=== PATIENT | female | born 2005 | race Caucasian/White ===

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

== ENCOUNTER 2023-02-01 10:36 | Outpatient (CLI) | payer OTHER, SELFPAY ==
[2023-02-01 17:14] LABS: Abs Immature Grans 0.01 10^3/uL (0.0-0.06); Absolute Basophil Count 0.03 10^3/uL (0.0-0.2); Absolute Eosinophil Count 0.12 10^3/uL (0.0-0.7); Absolute Lymphocyte Count 2.48 10^3/uL (1.2-3.4); Absolute Monocyte Count 0.44 10^3/uL (0.1-0.8); Absolute Neutrophil Count 1.95 10^3/uL (1.2-6.7); Basophils % 0.6; Eosinophils % 2.4; HCT 38.3 % (36.0-46.0); HGB 12.4 g/dL (11.2-15.7); Immature Grans % 0.2; Lymphocytes % 49.3; MCHC 32.4 % (32.0-36.0); MCV 83 fL (80-95); MPV 10.4 fL (8.0-11.0); Monocytes % 8.7; Neutrophils % 38.8; Platelet Count 364 10^3/uL (130-400); RBC 4.59 10^6/uL (3.93-5.22); RDW 12.2 % (11.7-14.6); RDW-SD 37.2 fL; WBC 5.03 10^3/uL (4.4-10.8)
[2023-02-01 17:23] LABS: ESR 1 mm/hr (0-20)
[2023-02-01 17:48] LABS: ALT 11 U/L (14-59); AST 13 U/L (15-37); Albumin 4.3 g/dL (3.4-5.0); Alkaline Phosphatase 68 U/L (46-116); Anion Gap 7.6 mmol/L (3-11); BUN 13 mg/dL (7-18); Bilirubin, Total 0.3 mg/dL (0.2-1.0); C-Reactive Protein 0.07 mg/dL (0.0-0.3); CO2 28.4 mmol/L (21.0-32.0); CREATININE 0.7 mg/dL (0.55-1.02); Calcium 9.7 mg/dL (8.5-10.1); Chloride 103 mmol/L (98-107); Estimated GFR 127.69 (mL/min/1.73m2); Glucose 111 mg/dL (74-106); Potassium 3.7 mmol/L (3.5-5.1); Sodium 139 mmol/L (136-145); TSH (W/Ref FT4) 1.95 uIU/mL (0.52-4.13); Total Protein 7.8 g/dL (6.4-8.2)
[2023-02-05 12:21] LABS: IgA 165 mg/dL (85-499); Interpretation (See Note); Tissue Transglutaminase IgA <1.2 U/mL (<4.0)
== END 2023-02-01 10:37 | disposition home or self-care (01) ==
LOC: LBO 02-06 10:37
PROVIDERS: Visit Provider Nurse Practitioner Pediatrics
DX: R63.4 Abnormal weight loss (principal)
CPT/HCPCS: 36415; 80053; 82784; 83516; 85652; 84443; 85025; 86140

== ENCOUNTER 2023-09-13 17:46 | Outpatient (CLI) | payer OTHER, SELFPAY ==
[2023-09-13 16:51] LABS: Abs Immature Grans 0.01 10^3/uL (0.0-0.06); Absolute Basophil Count 0.03 10^3/uL (0.0-0.2); Absolute Eosinophil Count 0.09 10^3/uL (0.0-0.7); Absolute Lymphocyte Count 2.47 10^3/uL (1.2-3.4); Absolute Monocyte Count 0.45 10^3/uL (0.1-0.8); Absolute Neutrophil Count 2.11 10^3/uL (1.2-6.7); Basophils % 0.6 %; Eosinophils % 1.7 %; HCT 36.9 % (36.0-46.0); HGB 11.7 g/dL (11.2-15.7); Immature Grans % 0.2 %; Lymphocytes % 47.9 %; MCH 26.7 pg (27.0-33.0); MCHC 31.7 % (32.0-36.0); MCV 84 fL (80-95); MPV 10.7 fL (8.0-11.0); Monocytes % 8.7 %; Neutrophils % 40.9 %; Platelet Count 249 10^3/uL (130-400); RBC 4.39 10^6/uL (3.93-5.22); RDW 12.7 % (11.7-14.6); RDW-SD 39.4 fL; WBC 5.16 10^3/uL (4.4-10.8)
[2023-09-13 18:41] LABS: ALT 18 U/L (14-59); AST 18 U/L (15-37); Albumin 4.3 g/dL (3.4-5.0); Alkaline Phosphatase 60 U/L (46-116); Anion Gap 12.2 mmol/L (3-11); BUN 11 mg/dL (7-18); Bilirubin, Total 0.4 mg/dL (0.2-1.0); CO2 24.8 mmol/L (21.0-32.0); CREATININE 0.7 mg/dL (0.55-1.02); Calcium 9.2 mg/dL (8.5-10.1); Chloride 104 mmol/L (98-107); Cholesterol 140 mg/dL (<200); Glucose 98 mg/dL (74-106); HDL Cholesterol 66 mg/dL (40-60); Potassium 3.6 mmol/L (3.5-5.1); Sodium 141 mmol/L (136-145); TSH (W/Ref FT4) 1.57 uIU/mL (0.36-3.74); Total Protein 7.3 g/dL (6.4-8.2); Vitamin B12 425 pg/mL (193-986)
[2023-09-13 18:50] LABS: Vitamin D 25 Total 24.1 ng/mL (30-100)
[2023-09-13 19:10] LABS: Triglyceride <25 mg/dL (<150)
[2023-09-13 19:23] LABS: LDL CHOLESTEROL 66 mg/dL (<100)
== END 2023-09-13 17:47 | disposition home or self-care (01) ==
LOC: LBO 17:47
PROVIDERS: Visit Provider Nurse Practitioner Family
DX: E78.5 Hyperlipidemia, unspecified (principal); I10 Essential (primary) hypertension; E55.9 Vitamin D deficiency, unspecified
CPT/HCPCS: 36415; 80053; 80061; 82306; 83721; 82607; 84443; 85025

== ENCOUNTER 2024-04-02 02:34 | Outpatient (CLI) | payer OTHER, SELFPAY ==
[2024-04-02 10:23] LABS: Panorama Kit Sent via Fed Ex
[2024-04-02 10:24] LABS: Abs Immature Grans 0.01 10^3/uL (0.0-0.06); Absolute Basophil Count 0.03 10^3/uL (0.0-0.2); Absolute Eosinophil Count 0.06 10^3/uL (0.0-0.7); Absolute Monocyte Count 0.46 10^3/uL (0.1-0.8); Absolute Neutrophil Count 4.28 10^3/uL (1.2-6.7); Basophils % 0.5 %; HCT 39.9 % (36.0-46.0); HGB 12.9 g/dL (11.2-15.7); Immature Grans % 0.2 %; Lymphocytes % 21.2 %; MCH 27.1 pg (27.0-33.0); MCHC 32.3 % (32.0-36.0); MCV 84 fL (80-95); MPV 10.6 fL (8.0-11.0); Monocytes % 7.5 %; Neutrophils % 69.6 %; Platelet Count 347 10^3/uL (130-400); RBC 4.76 10^6/uL (3.93-5.22); RDW 12.4 % (11.7-14.6); RDW-SD 37.8 fL; WBC 6.14 10^3/uL (4.4-10.8)
[2024-04-02 11:26] LABS: TSH (W/Ref FT4) 1.76 uIU/mL (0.36-3.74); Vitamin D 25 Total 21.9 ng/mL (30-100)
[2024-04-02 18:38] LABS: Hepatitis B Surface Ag Negative (Negative)
[2024-04-02 19:10] LABS: Hepatitis C Ab w Rflx HCV PCR Negative (Negative)
[2024-04-02 19:23] LABS: HIV-1/2 Ag & Ab Screen Negative (Negative)
[2024-04-03 11:11] LABS: Rubella IgG Ab (UVM) Positive (See Note); Varicella IgG Antibody Positive (See Note)
[2024-04-05 13:23] LABS: Syphilis IgG w/Reflex Nonreactive (Nonreactive)
[2024-04-09 11:26] LABS: Specimen WB Whole Blood
[2024-04-25 12:10] LABS: Result Summary NEGATIVE; Specimen WB Whole Blood
== END 2024-04-02 02:35 | disposition home or self-care (01) ==
LOC: LBO 02:34
PROVIDERS: Visit Provider Advanced Practice Midwife
DX: Z34.91 Encounter for supervision of normal pregnancy, unspecified, first trimester (principal)
CPT/HCPCS: 36415; 81220; 81222; 81329; 82306; 86787; 86803; 86850; 86900; 86901; 87340; 87389; 84443; 85025; 86762; 86780

== ENCOUNTER 2024-04-02 09:53 | Outpatient (REF) | payer OTHER, SELFPAY ==
[2024-04-03 10:57] LABS: Chlamydia Result Negative (Negative); GC Result Negative (Negative)
== END 2024-04-02 09:54 | disposition home or self-care (01) ==
LOC: LBN 09:53
PROVIDERS: Visit Provider Advanced Practice Midwife
DX: Z34.91 Encounter for supervision of normal pregnancy, unspecified, first trimester (principal)
CPT/HCPCS: 87491; 87591; 87086

== ENCOUNTER 2024-07-10 17:23 | Outpatient (CLI) | payer OTHER, SELFPAY ==
[2024-07-10 18:52] VITALS: BP 117/65; PULSE 75; TEMP 36.7
--- NOTE | 2024-07-10 19:30 | W.OBNST ---
Date of service: 07/10/24 Time of Service: 19:30 NST Evaluation Reason for NST Reasons for Nonstress Test: OTHER, SEE COMMENT (fall at 1600 today) Reason for NST Other: Pt slipped on ice, landed on left hip and elbow, denies impact to abdomen Gestational Age Gestational Age in Weeks and Days: 25 Weeks and 0Days Test and Monitor Explained Test/Monitor Explained: Test Explained, Monitor Explained and Patient Verbalized Understanding Vital Signs Blood Pressure: 117/65 Pulse: 75 Temperature: 98.1 F Urine Results Urine Protein: Negative Urine Ketones: Negative Urine Glucose: Negative Urine Blood: Negative NST Information Date on Monitor: 07/10/24 Time on Monitor: 17:44 Date off Monitor: 07/10/24 Time off Monitor: 18:50 Total Time on Monitor: 66 NST Interventions: PO Hydration and Notify Provider Contraction Frequency: Irregular NST Evaluation Patient States Movement: Present FHR Baseline: 145 Variability: Moderate 6-25 bpm Accelerations: 10x10 Decelerations: None NST Results: Reactive Note Ultrasound Done: N/A. NST Note Note: Blood type O+ Cvx closed/firm, mid pelvic position, vaginal mucous scant white No bleeding, no labor, pt reports cramps she had earlier have gone away Active fetus, pt tolerating PO fluid intake well, relaxed and conversational No abrasions or bruising visible on left hip or elbow, abd soft and nontender to palpation Discharged at 4 hours post fall in stable and comfortable condition F/up as scheduled and as needed with OB Provider NST Reviewed and Verified by: Angela Nicholson
[2024-07-10 19:31] VITALS: BP 117/65; PULSE 75; TEMP 36.7
== END 2024-07-10 20:24 ==
LOC: BCD 17:25 → OBS 17:54
PROVIDERS: Visit Provider Advanced Practice Midwife
DX: O9A.212 Injury, poisoning and certain other consequences of external causes complicating pregnancy, second trimester (principal); W00.0XXA Fall on same level due to ice and snow, initial encounter; Z3A.25 25 weeks gestation of pregnancy
CPT/HCPCS: 59025; G0378

== ENCOUNTER 2024-08-08 00:56 | Outpatient (CLI) | payer OTHER, SELFPAY ==
[2024-08-08 13:54] LABS: HGB 9.3 g/dL (11.2-15.7); MCH 27.3 pg (27.0-33.0); MCHC 32.1 % (32.0-36.0); MCV 85 fL (80-95); MPV 10.9 fL (8.0-11.0); Platelet Count 320 10^3/uL (130-400); RBC 3.41 10^6/uL (3.93-5.22); RDW-SD 36.9 fL; WBC 8.88 10^3/uL (4.4-10.8)
[2024-08-08 13:59] LABS: Glucose,1 Hr (Glucola) 122 mg/dL (80-140)
== END 2024-08-08 00:57 | disposition home or self-care (01) ==
LOC: LBO 00:56
PROVIDERS: Obstetrics & Gynecology Gynecology; Visit Provider Advanced Practice Midwife
DX: Z34.93 Encounter for supervision of normal pregnancy, unspecified, third trimester (principal)
CPT/HCPCS: 36415; 82950; 85027

== ENCOUNTER 2024-10-03 15:13 | Outpatient (REF) | payer OTHER, SELFPAY | END 2024-10-03 15:14 | disposition home or self-care (01) | LOC: LBN 15:13 | PROVIDERS: Visit Provider Advanced Practice Midwife | DX: Z34.93 Encounter for supervision of normal pregnancy, unspecified, third trimester (principal) | CPT/HCPCS: 87081 ==

== ENCOUNTER 2024-10-20 19:33 | Outpatient (CLI) | payer OTHER, SELFPAY ==
[2024-10-20 19:58] VITALS: BP 138/88; PULSE 75
[2024-10-20 20:15] VITALS: BP 122/75; PULSE 73
[2024-10-20 20:32] VITALS: BP 122/75; PULSE 88; TEMP 37.4
[2024-10-20 21:00] LABS: ROM Plus Negative
--- NOTE | 2024-10-21 07:22 | W.OBNST ---
Date of service: 10/20/24 Time of Service: 23:00 NST Evaluation Reason for NST Reasons for Nonstress Test: OTHER, SEE COMMENT Reason for NST Other: ? SROM Gestational Age Gestational Age in Weeks and Days: 39 Weeks and 5Days Test and Monitor Explained Test/Monitor Explained: Test Explained, Monitor Explained and Patient Verbalized Understanding Vital Signs Blood Pressure: 122/75 Pulse: 88 Temperature: 99.3 F Urine Results Urine Protein: Negative Urine Ketones: Negative Urine Glucose: Negative Urine Blood: Negative NST Information Date on Monitor: 10/20/24 Time on Monitor: 19:55 Date off Monitor: 10/20/24 Time off Monitor: 21:10 Total Time on Monitor: 75 NST Interventions: PO Hydration NST Evaluation Patient States Movement: Present FHR Baseline: 130 Variability: Moderate 6-25 bpm Accelerations: 15x15 Decelerations: None NST Results: Reactive Note Ultrasound Done: N/A. NST Note Note: Guerita came in for rule out ruptured labor. She leaked a small amount of fluid at home. ROM plus neg. SVE by RN. fingertip dilated and posterior -2. Observed for 1-2 hours and minimal cervical change. She was instructed to return home to await active labor and signs of labor was reviewed NST Reviewed and Verified by: Didi Waller
[2024-10-21 07:24] VITALS: BP 122/75; PULSE 88; TEMP 37.4
== END 2024-10-20 22:35 | disposition home health service (06) ==
LOC: BCD 19:35 → OBS 19:56
PROVIDERS: Visit Provider Advanced Practice Midwife
DX: O47.1 False labor at or after 37 completed weeks of gestation (principal); Z3A.39 39 weeks gestation of pregnancy
CPT/HCPCS: 84112; 59025

== ENCOUNTER 2024-10-21 02:13 | Inpatient (IN) | payer OTHER, SELFPAY ==
[2024-10-21] VITALS (13 sets, daily range): BP systolic 109–130; BP diastolic 67–78; PULSE 62–81; RESP 16–18; TEMP 36.4–36.9; O2SAT 97–100
[2024-10-21 03:14] LABS: HCT 36.2 % (36.0-46.0); MCHC 33.1 % (32.0-36.0); MCV 84 fL (80-95); MPV 11.8 fL (8.0-11.0); Platelet Count 256 10^3/uL (130-400); RBC 4.29 10^6/uL (3.93-5.22); RDW 13.8 % (11.7-14.6); RDW-SD 42.6 fL; WBC 12.18 10^3/uL (4.4-10.8)
[2024-10-21 03:36] LABS: ALT 21 U/L (14-59); AST 21 U/L (15-37); Albumin 2.7 g/dL (3.4-5.0); Alkaline Phosphatase 222 U/L (46-116); Anion Gap 12.8 mmol/L (3-11); BUN 11 mg/dL (7-18); Bilirubin, Total 0.3 mg/dL (0.2-1.0); CO2 22.2 mmol/L (21.0-32.0); CREATININE 0.6 mg/dL (0.55-1.02); Calcium 9.8 mg/dL (8.5-10.1); Chloride 103 mmol/L (98-107); Estimated GFR 130.88 (mL/min/1.73m2); Glucose 87 mg/dL (74-106); Potassium 3.4 mmol/L (3.5-5.1); Sodium 138 mmol/L (136-145); Total Protein 6.8 g/dL (6.4-8.2); Uric Acid 4.5 mg/dL (2.6-6.0)
--- NOTE | 2024-10-21 06:13 | W.PM.OBHPL1 ---
Date of service: 10/21/24 Time of Service: 06:13 Assessment and Plan Assessment and plan (1) Spontaneous onset of labor: Status: Acute Assessment and plan: Admit to Center and routine admission labs. Comfort measures. Anticipate . OB-HPI Labor/Delivery History of Present Illness Reason for Visit: R/O Labor Chief Complaint: Uterine Contractions. KRISH Calculator Estimated Delivery Date Method Current WG Current Estimate 10/23/24 LMP (Certain) 39w 5d Other Estimates 10/25/24 Ultrasound #1 39w 3d Comments: Gabriella came in last night for rule out labor and ROM plus. ROM plus was neg and after observation, cervix was a fingertip dilated and posterior. She went home to await active labor. She returned with small amount of bloody show and stronger contractions at 0200. She ambulated and used the tub for comfort and her labor has progressed. History of Present Expected Delivery Route/Plan - CNM FOB/boyfriend - Roosevelt Butt (first child) BB yes to circ desires unmedicated experience GBS negative Roosevelt and Bel for team. Specific Issues/Plan 1. Hx of being underweight, BMI 19 at initial OB, will monitor 2. cfDNA - low risk, CF & SMA negative, AFP declined 3. 5P screen neg, PHQ9 score 5 4. Vitamin D 21.9- D3 2,000 units recommended daily. 5. Anemia- Hgb 9.3, Was taking gummy vitamins, Started PO iron daily. Repeat Hgb at 36 wks=12.3 PFSH All Active Problems (Updated 10/21/24 @ 06:17 by Didi Waller CNM) Spontaneous onset of labor (Acute) (Acute) Wears glasses (Chronic) Followed by [facility]- last visit 04/06/2020 Learning difficulty (Acute 11/07/16) with IEP Medical History (Updated 10/21/24 @ 06:17 by Didi Waller CNM) Dysmenorrhea Weight loss, unintentional Delayed menses Learning difficulty with IEP Family History Mother Healthy adult on routine physical examination Father Healthy adult on routine physical examination Other Essential hypertension PGF, MGM Heart disease PGF, MGM Hyperlipidemia PGF, MGM Neoplasm MGM-colon, PGF-lung Stroke PGF, MGM Social History Smoking/Tobacco Use Status: Never Second Hand Exposure: No Smoking risk assessment performed?: Yes Alcohol Intake: never Drug use: Never Household members: family Education Level: other Details: Working at the [employer] Pets and animals: Yes (1 cat 1 dog) Pets and animals: cat(s) and dog(s) Current gender identity: female What type of physical activity do you participate in: regular exercise and other Details: Playing Volleyball Seatbelt use: always Helmet use: Yes History History 1 Para 0 Hx # Term Pregnancies 0 Multiple births 0 Hx # Pregnancies 0 Ectopic pregnancies 0 AB induced 0 Hx Number of Living Children 0 AB spontaneous 0 Meds Allergies and Home Medications Allergies Allergy/AdvReac Type Severity Reaction Status Date / Time No Known Allergies Allergy Verified 10/20/24 14:58 Home Medications ?Medication ?Instructions ?Recorded ?Confirmed ?Type docosahexaenoic acid 200 mg mg PO 03/14/24 10/13/24 History capsule ( DHA) cholecalciferol (vitamin D3) 10 10 mcg PO DAILY 05/02/24 10/13/24 History mcg (400 unit) capsule vitamin C 30 mg-zinc citrate 1.1 2 tab PO DAILY 07/25/24 10/13/24 History mg-elderberry 25 mg chewable tablet (Sambucus Elderberry) ferrous sulfate 325 mg (65 mg 325 mg PO DAILY #90 tabs 08/08/24 10/13/24 Rx iron) tablet (Feosol) Exam Physical Exam Vital signs: Temp Pulse Resp BP 98.2 F 76 18 126/74 10/21/24 03:16 10/21/24 04:56 10/21/24 03:16 10/21/24 04:56 Vital Signs Reviewed: Yes Constitutional Constitutional: mild distress Detailed Labor and Delivery Exam Dilation: 2 Effacement (%): 70 station: -1 Cervix position: posterior Consistency: soft Yang Score: Cervical Points Exam 0 1 2 3 Dilation Closed 1-2cm 3-4 cm 5-6cm Effacement 0-30% 40-50% 60-70% 80% Consistency Firm Medium Soft Station -3 -2 -1,0 +1,+2 Position Posterior Mid Anterior Amniotic Membrane Status: Intact Contraction Frequency(min): ana m 2-3 Contraction Duration(sec): 60 Contraction Intensity: Moderate Fetus A Heart Rate Baseline: 130 Monitor Accelerations: 15 X 15 Monitor Decelerations: None Variability: Moderate (6-25 BPM) Presentation: Cephalic Categories: Category I HEENT Exam HEENT Exam: Normal Respiratory Exam Respiratory Exam: Normal Cardiovascular Exam Cardiovascular Exam: Normal Abdominal Exam Abdominal Exam: Normal Exam Exam: Normal Extremities Exam Extremities Exam: Normal Skin Exam Skin Exam: Normal Psychiatric Exam Psychiatric Exam: Normal Results Abnormal Lab Findings: Abnormal Labs 10/21/24 03:10 WBC 12.18 H MPV 11.8 H Potassium 3.4 L Anion Gap 12.8 H Alkaline Phosphatase 222 H Albumin 2.7 L Risk Assessment Risk for Shoulder Dystocia Historical/Initial OB: NEGATIVE FOR: Pelvic Abnormality, Pre- BMI>30, Previous Shoulder Dystocia or Previous Macrosomia 36 Weeks: NEGATIVE FOR: Current Gestational DM, EFW>4500gms or Maternal Weight Gain>40lbs 40 Weeks: NEGATIVE FOR: EFW> 4500 gms, Maternal Weight Gain >40lb or Post Dates Increased Risk?: No Risk for Pre-Eclampsia Date Initiated/Initials: not indicated. JK Yes, if one or more: NEGATIVE FOR: Hx Pre-E/Gest HTN, Chronic HTN, Multiple Gestation, Pre-gestational DM, Renal Disease, Systemic Lupus or APA Syndrome Yes, if 2 or more: POSITIVE FOR: Nulliparity; NEGATIVE FOR: Age>= 35 yrs, >10yr btwn pregnancies, BMI>30, ethinicty, Mother/Sister w/ Pre-E or Previous IUGR Risk for Post- Hemorrhage Initial: NEGATIVE FOR: Multiple Gestation, Previous PPH, Known Clotting Deficiency, Grand Multiparity or Anticoagulation 36 Weeks: NEGATIVE FOR: Anemia, hgb<10, Low platelets(thrombocytopenia), Gestational HTN or Pre-E, Polyhydraminios or EFW>4500gms 40 Weeks: NEGATIVE FOR: Anemia, hgb<10, Low platelets (thrombocytopenia), Gestation HTN or Pre-E, Polyhydraminios or EFW>4500gms At Risk?: No Risks Reviewed Risks Reviewed Upon Admission: Yes
--- NOTE | 2024-10-21 08:14 | W.PM.OBNL1 ---
Date of service: 10/21/24 Time of Service: 08:15 Pelvic Exam Dilation: 2 Effacement (%): 90 station: -2 Cervix Position: posterior Consistency: soft Vaginal Exam Presentation: Cephalic Contractions Monitor Mode: External Contraction Frequency(min): every 3 min Contraction Duration(sec): 60 Intensity: Moderate Fetus A Monitor: External (US) Heart Rate Baseline: 130 Presentation: Cephalic Variability: Moderate (6-25 BPM) Categories: Category I FHR Rhythm: Regular Accelerations: 15 X 15 Decelerations: None Assessment and Plan Assessment and plan (1) Spontaneous onset of labor: Status: Acute Assessment and plan: Comfort measures. Continue to assess labor progress. Objective Abnormal lab results 10/21/24 Range/Units 03:10 WBC 12.18 H (4.4-10.8) 10^3/uL MPV 11.8 H (8.0-11.0) fL Potassium 3.4 L (3.5-5.1) mmol/L Anion Gap 12.8 H (3-11) mmol/L Alkaline Phosphatase 222 H (46-116) U/L Albumin 2.7 L (3.4-5.0) g/dL Temp Pulse Resp BP 98.4 F 72 18 128/67 10/21/24 07:38 10/21/24 07:38 10/21/24 07:38 10/21/24 07:38 Laboratory Results WBC 12.18 10^3/uL (4.4-10.8) H 10/21/24 03:10 RBC 4.29 10^6/uL (3.93-5.22) 10/21/24 03:10 Hgb 12.0 g/dL (11.2-15.7) 10/21/24 03:10 Hct 36.2 % (36.0-46.0) 10/21/24 03:10 MCV 84 fL (80-95) 10/21/24 03:10 MCH 28.0 pg (27.0-33.0) 10/21/24 03:10 MCHC 33.1 % (32.0-36.0) 10/21/24 03:10 RDW 13.8 % (11.7-14.6) 10/21/24 03:10 Plt Count 256 10^3/uL (130-400) 10/21/24 03:10 MPV 11.8 fL (8.0-11.0) H 10/21/24 03:10 Sodium 138 mmol/L (136-145) 10/21/24 03:10 Potassium 3.4 mmol/L (3.5-5.1) L 10/21/24 03:10 Chloride 103 mmol/L (98-107) 10/21/24 03:10 Carbon Dioxide 22.2 mmol/L (21.0-32.0) 10/21/24 03:10 Anion Gap 12.8 mmol/L (3-11) H 10/21/24 03:10 BUN 11 mg/dL (7-18) 10/21/24 03:10 Creatinine 0.6 mg/dL (0.55-1.02) 10/21/24 03:10 Est GFR (CKD-EPI 2020) 130.88 (mL/min/1.73m2) 10/21/24 03:10 Glucose 87 mg/dL (74-106) 10/21/24 03:10 Uric Acid 4.5 mg/dL (2.6-6.0) 10/21/24 03:10 Calcium 9.8 mg/dL (8.5-10.1) 10/21/24 03:10 Total Bilirubin 0.3 mg/dL (0.2-1.0) 10/21/24 03:10 AST 21 U/L (15-37) 10/21/24 03:10 ALT 21 U/L (14-59) 10/21/24 03:10 Alkaline Phosphatase 222 U/L (46-116) H 10/21/24 03:10 Total Protein 6.8 g/dL (6.4-8.2) 10/21/24 03:10 Albumin 2.7 g/dL (3.4-5.0) L 10/21/24 03:10 ABO/Rh O Positive 10/21/24 03:10 Antibody Screen NEGATIVE 10/21/24 03:10 Subjective Patient Reports: New Complaints Interval history since last seen: Guerita is experiencing pelvic pressure. She is coping well Results Hemoglobin/Hematocrit: Hgb 12.0 g/dL (11.2-15.7) 10/21/24 03:10 Hct 36.2 % (36.0-46.0) 10/21/24 03:10 Abnormal Lab Findings: Abnormal Labs 10/21/24 03:10 WBC 12.18 H MPV 11.8 H Potassium 3.4 L Anion Gap 12.8 H Alkaline Phosphatase 222 H Albumin 2.7 L
[2024-10-21] MEDS: MORPHine 10 MG/ML VIAL SC (09:59)
--- NOTE | 2024-10-21 10:24 | W.PM.OBNL1 ---
Date of service: 10/21/24 Time of Service: 10:24 Informed Consent Informed Consent: Risk,Benefits,Alternatives Discussed and Other (therapeutic rest) Pelvic Exam Dilation: 2 Effacement (%): 90 station: -2 Cervix Position: posterior Consistency: soft BISHOPS Score(Cervical Ripeness Score): 7 Contractions Monitor Mode: Palpation Contraction Frequency(min): 1-2 per ten minutes Intensity: Mild/Moderate Fetus A Monitor: External (US) Heart Rate Baseline: 135 Variability: Moderate (6-25 BPM) Categories: Category I Accelerations: Present Decelerations: None Amniotic Membrane Status: Intact Assessment and Plan Assessment and plan (1) Spontaneous onset of labor: Status: Acute Assessment and plan: A: 19 yo G1 @ 39+5 wks, benign AP course, prolonged prodromal phase Maternal exhaustion, wellbeing verified w/cat 1 FHT GBS negative, ketonuria noted this morning, favorable cvx P: Will give morphine 10 mg SC for therapeutic rest Encourage PO hydration (juice) Expectant management once pt awakens Anticipate Objective Vital Signs Reviewed: Yes Objective Narrative Objective Narrative: Pt appears exhausted, Urine dip +ketones (moderate) Tolerating PO intake Breathing and wincing when has contractions FOB and her mother bedside for support Has ambulated, used the tub, tried to rest throughout the night Subjective Interval history since last seen: Pt is very tired, little appetite, trying to drink water, has been up all night with discomforts and contractions. Desires to sleep, requests pain medication for rest.
--- NOTE | 2024-10-21 14:38 | NUR.NOTE ---
Pt reports that she vomited again around 1415. Her mother was there and they had a vomit bag. No further concerns. Is looking forward to ellie. Nursing Note:
[2024-10-21] MEDS: Ondansetron O.D.T. 4 MG TABEF PO (14:46)
--- NOTE | 2024-10-21 16:52 | W.PM.OBNL1 ---
Date of service: 10/21/24 Time of Service: 16:53 Pelvic Exam Dilation: 3 Effacement (%): 90 station: -2 Cervix Position: anterior Consistency: soft Contractions Monitor Mode: Palpation Contraction Frequency(min): irregular Intensity: Mild Fetus A Monitor: Doppler Heart Rate Baseline: 10 FHR Rhythm: Regular Characteristics: Normal Assessment and Plan Assessment and plan (1) Spontaneous onset of labor: Status: Acute Assessment and plan: A: Not in active labor, cvx changed slightly to 3/90%, vtx -2, intact Options in care plan discussed with pt Tolerating PO intake after Zofran given, resting in bed status reassuring via intermittent auscultation P: Pt to discuss preferences with partner and mother Expectant management at this time Objective Pt appears to be resting on left side in bed, attended to by her mother and partner. She requested cvx exam, found to be 3/90% vtx -2, intact membranes, cvx soft and mid/anterior pelvis Options reviewed: continue resting & waiting for labor to increase vs going home to rest (15 min away) vs committing to delivery with AROM when acuity and volume on unit allow were discussed with pt. VSS with normal BP, afebrile, minimal cvx change today, not in active labor though cvx favorable at 8-9 Yang score Vital Signs Reviewed: Yes Subjective Interval history since last seen: Pt was able to sleep for a couple of hours, has been resting in bed since then, contractions are less often and not as painful, does feel some pelvic pressure, tried to eat but vomited, given Zofran and then pt was able to keep some toast and juice down.
--- NOTE | 2024-10-21 20:51 | W.PM.OBNL1 ---
Date of service: 10/21/24 Time of Service: 20:51 Pelvic Exam Dilation: 4 Effacement (%): 100 station: -2 Cervix Position: mid Consistency: soft Contractions Monitor Mode: External Contraction Frequency(min): q6 minutes Intensity: Moderate Fetus A Monitor: External (US) Heart Rate Baseline: 130 Variability: Moderate (6-25 BPM) Categories: Category I Accelerations: Present Decelerations: None Amniotic Membrane Status: Intact Assessment and Plan Assessment and plan (1) Spontaneous onset of labor: Status: Acute Assessment and plan: A: Labor becoming more active in a primipara Category 1 tracing P: Pt desires unmedicated labor Comfort measures as desired Anticipate Objective Vital Signs Reviewed: Yes Subjective Interval history since last seen: Contractions are increasingly strong again, bloody vaginal mucous noted
--- NOTE | 2024-10-21 22:05 | W.PM.OBNL1 ---
Date of service: 10/21/24 Time of Service: 22:19 Pelvic Exam Dilation: 5 Effacement (%): 100 station: 0 Contractions Monitor Mode: Palpation Contraction Frequency(min): q4-5 Intensity: Moderate/Strong Fetus A Monitor: Doppler Heart Rate Baseline: 130 FHR Rhythm: Regular Characteristics: Normal Assessment and Plan Assessment and plan (1) Spontaneous onset of labor: Status: Acute Assessment and plan: A: progress to 5/100, descent to 0 station, membranes intact voiding qs, tolerating sips of PO fluids reassuring status per doppler FHT checks P: Continue current plan of care Pt reaffirms commitment to unmedicated Anticipate , Dr. Fernandez in house Objective Vital Signs Reviewed: Yes Subjective Interval history since last seen: resting in bed, states increased pelvic pressure and rectal pressure
[2024-10-22] VITALS (116 sets, daily range): BP systolic 103–129; BP diastolic 58–80; PULSE 65–148; RESP 16–18; TEMP 36.4–37.6; O2SAT 80–100; BMI 23.3
--- NOTE | 2024-10-22 00:15 | W.PM.OBNL1 ---
Date of service: 10/22/24 Time of Service: 00:05 Informed Consent Informed Consent: Regional Anesthesia and Risk,Benefits,Alternatives Discussed Pelvic Exam Dilation: 7 (large forebag) Effacement (%): 100 station: +1 Contractions Monitor Mode: External Contraction Frequency(min): q2-3 Intensity: Moderate/Strong Fetus A Monitor: External (US) Heart Rate Baseline: 135 Variability: Moderate (6-25 BPM) Categories: Category I Accelerations: Present Decelerations: None Amniotic Membrane Status: Intact Assessment and Plan Assessment and plan (1) Spontaneous onset of labor: Status: Acute Assessment and plan: A: Need for pain management and hydration Active labor, category 1 tracing P: SANDWICH PEDDLER paged, IV access initiated, bolus IVF in progress Plan AROM when pt is more comfortable Anticipate Objective Vital Signs Reviewed: Yes Objective Narrative Objective Narrative: Pt appears exhausted, shakey, tense, lips are dry She has been in the tub, standing by bed, assisted by FOB Options in medications reviewed, pt chooses epidural anesthesia Subjective Interval history since last seen: Pt states she has decided she wants epidural anesthesia
[2024-10-22] MEDS: FentaNYL/ROPIvacaine 2 mcg/ml and 0.1% 200 ML CADD Cassette EP (00:20)
--- NOTE | 2024-10-22 00:50 | W.ANESNEU ---
Epidural/Spinal Catheter Date Performed: 10/22/24 Procedure Start: 00:21 Procedure Stop: 00:25 Requesting Provider: Angela Nicholson Procedure Location: Obstetrics Reason Performed: Labor Epidural Standard Monitors Applied: Blood Pressure and SpO2 Patient Position: Sitting Sedation Given (Indicate Dose Given): No Sedation given Patient Mental Status: Awake Sterility: Hand Hygiene, Surgical Cap, Surgical Mask, Sterile Gloves, Sterile Drape/Sheet and Chlorhexidine Procedure Location: L2-L3 Interspace Epidural Needle: Tuohy 17 Guage Needle Length: 3.5 Inch Needle Approach: Midline Epidural Procedure: 1% Lidocaine to skin and subcutaneous tissue with 25G needle and MIRA to Saline Used Catheter Placed?: Catheter Placed (wire reinforced. ) Test Dose (Indicate Dose Given): 3ml 1.5% Lidocaine with 1:200K Epinephrine Given and Negative Test Dose Loss of Resistance Depth (cm): 4 Catheter depth at skin (cm): 9 Dressing: Sorbaview Dressing Placed, Mastisol Used and Dressing reinforced with Tape Epidural Provider Bolus (Indicate Dose Given): Total Ropivacaine 0.1% with Fentanyl 2mcg/ml Given from pump. (ml) Dose:: 7 mL Additives (Indicate Dose Given ): None Infusion Medication: Medication Infusion Began Medication Infusion: Ropivacaine 0.1% with Fentanyl 2mcg/ml Maintenance Infusion Rate (ml/hour): 10 PCEA Bolus Dose (ml): 5 Block Level: N/A Paresthesia: None Ultrasound: Used to yvrose site Number of Attempts (See previous attempts in note section): 1 Procedure Tolerated: No Complications Procedure Outcome: Successful Performed By: Jordy Wolff
[2024-10-22] MEDS: Lactated Ringers 250 ML 500 ML IV (00:51)
--- NOTE | 2024-10-22 01:07 | ANES.PREOP_ITS ---
General Info Date of Service Date Performed: 10/22/24 Height: 5 ft 3 in Weight: 59.874 kg Body Mass Index (BMI): 23.3 Meds Allergies and Home Medications Allergies Allergy/AdvReac Type Severity Reaction Status Date / Time No Known Allergies Allergy Verified 10/20/24 14:58 Home Medication ?Medication ?Instructions ?Recorded docosahexaenoic acid 200 mg mg PO 03/14/24 capsule ( DHA) cholecalciferol (vitamin D3) 10 10 mcg PO DAILY 05/02/24 mcg (400 unit) capsule vitamin C 30 mg-zinc citrate 1.1 2 tab PO DAILY 07/25/24 mg-elderberry 25 mg chewable tablet (Sambucus Elderberry) ferrous sulfate 325 mg (65 mg 325 mg PO DAILY #90 tabs 08/08/24 iron) tablet (Feosol) Current Visit Medications: Current Medications Generic Name Dose Route Start Last Admin Trade Name Freq PRN Reason Stop Dose Admin Ephedrine Sulfate 5 mg 10/22/24 00:51 Ephedrine 50 Mg/Ml Vial IVP DIRECTED PRN Fentanyl/Ropivacaine 200 ml 10/21/24 23:45 Fentanyl/Ropivacaine 2 Mcg/Ml And 0.1% 200 Ml Cadd Cassette EP DIRECTED LILLIAN Ringer's Solution 250 mls @ 500 mls/hr 10/22/24 00:51 IV 10/22/24 01:20 BOLUS ONE Naloxone HCl 2 mg/ Sodium 500 mls @ 7.484 mls/hr 10/22/24 00:51 Chloride IV INFUSION PRN pruritis 0.5 MCG/KG/HR Naloxone HCl 0 mg 10/22/24 00:51 Naloxone 0.4 Mg/Ml Vial IVP DIRECTED PRN Naloxone HCl 0.04 mg 10/22/24 00:51 Naloxone 0.4 Mg/Ml Vial IVP PRN PRN PRURITIS Ondansetron HCl 4 mg 10/21/24 14:28 10/21/24 14:46 Ondansetron O.D.T. 4 Mg Tabef PO 4 mg Q6H PRN PRN Administration PFSH Active Problems Active Problems: Problem Status Onset Code Spontaneous onset of labor Acute Acute Z34.90 Wears glasses Chronic Z97.3 Learning difficulty Acute 11/07/16 F81.9 Medical History Medical History (Updated 06/10/25 @ 06:17 by Didi Waller CNM) Dysmenorrhea Weight loss, unintentional Delayed menses Learning difficulty with IEP Tobacco Smoking/Tobacco Use Status: Never Second hand exposure: No Alcohol Alcohol Intake: never Substance Use Substance use: Never Prental History History 2 1 Para 0 Hx # Term Pregnancies 0 Multiple births 0 Hx # Pregnancies 0 Ectopic pregnancies 0 AB induced 0 Hx Number of Living Children 0 AB spontaneous 0 Vital Signs and Lab Results Vital Signs Most Recent Vital Signs in EMR: Most Recent Vital Signs Temp Pulse Resp BP Pulse Ox 36.8 C 67 18 103/61 98 10/21/24 22:51 10/22/24 01:06 10/21/24 19:47 10/22/24 01:06 10/22/24 01:03 Lab Results 10/21/24 03:10 10/21/24 03:10 Blood Type / Crossmatch: 2 Antibody Screen NEGATIVE 10/21/24 Complete Blood Count: 2 White Blood Count 12.18 10^3/uL (4.4-10.8) H 10/21/24 03:10 Red Blood Count 4.29 10^6/uL (3.93-5.22) 10/21/24 03:10 Hemoglobin 12.0 g/dL (11.2-15.7) 10/21/24 03:10 Hematocrit 36.2 % (36.0-46.0) 10/21/24 03:10 Platelet Count 256 10^3/uL (130-400) 10/21/24 03:10 Complete Metabolic Panel: 2 Sodium 138 mmol/L (136-145) 10/21/24 03:10 Potassium 3.4 mmol/L (3.5-5.1) L 10/21/24 03:10 Chloride 103 mmol/L (98-107) 10/21/24 03:10 Carbon Dioxide 22.2 mmol/L (21.0-32.0) 10/21/24 03:10 BUN 11 mg/dL (7-18) 10/21/24 03:10 Creatinine 0.6 mg/dL (0.55-1.02) 10/21/24 03:10 Est GFR (CKD-EPI 2020) 130.88 (mL/min/1.73m2) 10/21/24 03:10 Calcium 9.8 mg/dL (8.5-10.1) 10/21/24 03:10 Albumin 2.7 g/dL (3.4-5.0) L 10/21/24 03:10 Glucose 87 mg/dL (74-106) 10/21/24 03:10 Liver Function Panel: 2 Alanine Aminotransferase (ALT/SGPT) 21 U/L (14-59) 10/21/24 03: 10 Aspartate Amino Transf (AST/SGOT) 21 U/L (15-37) 10/21/24 03:10 Coagulation Panel: 2 No Data to Display Cardiac Panel: 2 No Data to Display Arterial Blood Gas: 2 No Data to Display Venous Blood Gas: 2 No Data to Display Pancreas Panel: 2 No Data to Display Thyroid Panel: 2 No Data to Display Infectious Disease: 2 No Data to Display Blood Cultures: 2 No Data to Display Toxicology Panel: 2 No Data to Display Panel: 2 No Data to Display Anesthesia Assessment and Plan Anesthesia History Personal History: No History of Anesthesia Complications Family History: No Family History of Anesthesia Complications Exercise Tolerance Exercise Tolerance: Metabolic Equivalents>4 Cardiac & Pulmonary Exam Cardiac Exam: Normal S1/S2 Heart Sounds Pulmonary Exam: Clear Bilateral Breath Sounds Implantable Cardiac Device Does patient have a Pacemaker or an ICD?: No Airway Exam Known Difficult Airway: No Mallampati Class: 3 Mouth Opening: Narrow (< 3cm) Thyromental Distance: Less than 3 cm Neck Range of Motion: Full ROM Neck Circumference: Normal Teeth Condition: Normal Dentition ASA Classification ASA Score: ASA 1 Emergency Case?: No NPO Status NPO Status: Unable to Assess Status Status: Confirmed Anesthesia Plan Resuscitation Status: Full Code Anesthesia Technique: Epidural Anesthesia Airway Planned: Natural Airway Pain Management: Epidural Monitors Used: Standard Monitors Preoperative Comments:: 19 yo G1 at 7 cm requesting labor analgesia. Sig PMHx: Denies. No asthma/RAD No HTN. Plt 256
--- NOTE | 2024-10-22 05:42 | W.PM.OBNL1 ---
Date of service: 10/22/24 Time of Service: 05:42 Pelvic Exam Dilation: 9 station: 0 Contractions Monitor Mode: External Contraction Frequency(min): q2-4 Intensity: Moderate/Strong Fetus A Monitor: External (US) Heart Rate Baseline: 135 Variability: Moderate (6-25 BPM) Categories: Category I Accelerations: Present Decelerations: None Amniotic Membrane Status: Ruptured Rupture Method: Spontaneous Amniotic Fluid: Clear Amount: large Date of Membrane Rupture: 10/22/24 Time of Membrane Rupture: 04:55 Assessment and Plan Assessment and plan (1) Spontaneous onset of labor: Status: Acute Assessment and plan: A: Effective epidural, SROM clear fluid 0455 AROM of forebag at 0530 for more clear fluid 9 cm with vtx 0/+1 station, cat 1 tracing P: Discussed passive descent with pt once she is fully dilated Change maternal position to facilitate rotation and descent Anticipate Objective Vital Signs Reviewed: Yes Subjective Interval history since last seen: Epidural is effective, pt was able to sleep for a couple of hours, moving legs well.
[2024-10-22] MEDS: Oxytocin/Normal Saline 30 UNIT/500 ML BAG 95 UNITS IV (07:50)
[2024-10-22] MEDS: Oxytocin 10 UNITS/ML VIAL IM (07:50)
[2024-10-22] MEDS: Normal Saline Flush 10 ML SYR IVP (07:50)
[2024-10-22] MEDS: Methylergonovine 0.2 MG/ML VIAL (07:51)
--- NOTE | 2024-10-22 08:45 | OBVDS_ITS ---
Date of service: 10/22/24 Time of Service: 08:45 OB Labor/ Delivery Information Baby A Delivery Delivery Method: Spontaneaous Presentation: Cephalic Cephalic Position: Vertex Cord Description-Baby A: 3 Vessels (appears hypercoiled) Amniotic Fluid: Clear Quantitative Blood Loss: 300 Delivery Outcome: Liveborn Transferred: Remains with Mother Note: Pt rested under epidural anesthesia, reported increasing pelvic and rectal pressure. Eventually she was involuntarily bearing down, tracing remained category 1. Due to multiple deliveries occurring on unit Dr. Fernandez attended pt and coached her through 2nd stage labor to delivery, CNM joined to assist du ring . Excellent maternal efforts resulted in of a vigorous male infant over intact perineum, shoulders delivered easily and to mother's arms. Cord ceased pulsating and was clamped then cut by FOB, unable to collect cord blood due to hypercoiled appearance of cord. Lisa placenta delivered intact with 3VC by CNM, initial brisk bleeding controlled with 10 unit pitocin IM until IV patency was restored for pitocin bolus, and 0.2 mg methergine IM. Bladder palpated full and straight cath returned 700 ml clear yellow urine. Fundus firm below umbilicus at this point and lochia well controlled. Perineum and vagina inspected and found to be intact, strong family bonding observed. A small amount of cord blood was collected from side of placenta. Apgars 8/9, weight 3475 gms. Providers Doctor: Any Fernandez Nurse Cigarette Paper Tester: Angela Nicholson Nurse: Oleksandr Haq Nurse: Leticia Arias Other: Aminta Wilson RN Labor/Delivery Information Number of Babies in Womb: 1 Group Beta Strep: Negative Antibiotics Administered: No Rubella Status: Immune Blood Type: O+ Varicella Immunity: Immune Shoulder Dystocia: No Stages of Labor Complete Dilatation Date: 10/22/24 ROM Baby A: 10/22/24 ROM Baby A: 05:00 ROM Total Time- Baby A: [id number] Infant Delivery Date-Baby A: 10/22/24 Infant Delivery Time-Baby A: 07:46 Placenta Delivery Date-Baby A: 10/22/24 Placenta Delivery Time-Baby A: 07:50 Labor-Stage 3 Duration: 4 minutes Placenta Cultured: Yes Placenta Status: Delivered Baby A Gender: Male Gestational Status: Term (39-41.6 wks) Gestational Age in Weeks/Days: 39 Weeks and 6 Days weight: 7 lb 10.577 oz Weight Comment: 3475 gms Score-1 Minute Interval(Baby A) Heart Rate-1 minute: 100 BPM or Greater Respiratory Effort- 1 minute: Spontaneous/Strong Cry Muscle Tone-1 minute: Minimal Flexion/Extension Reflex Response-1 minute: Prompt Response Color-1 minute: Bluish Hands or Feet Total Score-1 minute: 8 Score-5 Minute Interval(Baby A) Heart Rate- 5 minute: 100 BPM or Greater Respiratory Effort-5 minute: Spontaneous/Strong Cry Muscle Tone-5 minute: Active Movement Reflex Response-5 minute: Prompt Response Color-5 minute: Bluish Hands or Feet Total Score- 5 minute: 9
[2024-10-22] MEDS: Acetaminophen 325 MG TAB 650 MG PO (12:34)
--- NOTE | 2024-10-22 14:26 | W.ANESPOSTOP ---
Postoperative Evaluation Date, Time and Location Date Performed: 10/22/24 Time Performed: 14:27 Patient Location: Obstetrics Vital Signs Most Recent Imported Vital Signs: Most Recent Vital Signs Temp Pulse Resp BP Pulse Ox 37.0 C 74 18 129/69 96 10/22/24 12:09 10/22/24 12:09 10/22/24 12:09 10/22/24 12:09 10/22/24 12:09 Pain Score Most Recent Pain Score: Most Recent Pain Score Pain Level 4 10/22/24 12:34 Assessment Mental Status: Awake (Alert & Oriented to Patient Baseline) Airway and Respiratory Function: Patent airway with normal (patient baseline) respiratory exam Cardiovascular Function: Hemodynamically Stable Hydration Status: Adequately Hydrated Nausea & Vomiting: No Nausea or Vomiting Pain: Pt. Denies Any Pain Peripheral Nerve Block: Patient did not receive a nerve block Teaching Patient Teaching: Advised to seek followup for the following concerns (See explanation) (Bleeding from epidural site, progressing LE weakness, lower back pain) Concerns: Other
[2024-10-22] MEDS: Ibuprofen 600 MG TAB PO (15:35)
--- NOTE | 2024-10-22 17:11 | LC.LAC2 ---
Date of service: 10/22/24 Time of Service: 15:00 Subjective Identifiers Parent's Name: Guerita Concerns Parental Concerns: feels baby is latching well and feeding frequently Provider Concerns: infrequent and shallow latch Indications for Referral Difficulty Establishing Feedings(<8 Feeds/24Hours): Yes Background Support Comments: Bel-Mother Delivery Hx Type of Delivery: Vaginal Infant Gender: Male Gestational Status: Term (39-41.6 wks) Vacuum: N/A Forceps: N/A Shoulder Dystocia: No Score 1 Minute Heart Rate-1 minute: 100 BPM or Greater Respiratory Effort- 1 minute: Spontaneous/Strong Cry Muscle Tone-1 minute: Minimal Flexion/Extension Reflex Response-1 minute: Prompt Response Color-1 minute: Bluish Hands or Feet Total Score-1 minute: 8 Score 5 Minute Heart Rate- 5 minute: 100 BPM or Greater Respiratory Effort-5 minute: Spontaneous/Strong Cry Muscle Tone-5 minute: Active Movement Reflex Response-5 minute: Prompt Response Color-5 minute: Bluish Hands or Feet Total Score- 5 minute: 9 Results Infant Weight/I&O Weight Change: weight 3475 g Weight 59.874 kg I&O: 10/21/24 10/21/24 10/22/24 10/22/24 11:59 23:59 11:59 23:59 Intake Total 762 / 762 323.5 / 323.5 Output Total 1000 / 1650 650 / 1650 1000 / 1900 900 / 1900 Balance -238 / -888 -650 / -888 -676.5 / -1576.5 -900 / -1576.5 Intake: IV 83.5 / 83.5 Oral 762 / 762 240 / 240 Output: Urine 1000 / 1650 650 / 1650 1000 / 1900 900 / 1900 Other: Urine Color Pale Yellow Yellow [place] Urine Appearance Clear Clear Hematuria Urine Odor None None Comment per previous shift straight cath Weight 59.874 kg 59.874 kg
[2024-10-23 10:45] VITALS: BP 120/80; PULSE 78; RESP 16; TEMP 36.5; O2SAT 97
[2024-10-23 13:30] VITALS: BP 113/73; PULSE 68; RESP 16; TEMP 36.5; O2SAT 99
--- NOTE | 2024-10-23 14:56 | W.PM.OBDISCH ---
Date of service: 10/23/24 Time of Service: 14:56 DS: Diagnosis Discharge Diagnosis (1) Spontaneous onset of labor: Status: Resolved Asessment and Plan: Caring for baby independently. Pain is managed well with oral analgesics. Voiding without difficulty. well. Guerita desires discharge today. She has shown some deficits in comprehension of instructions related to learning disability. A - stable mother and baby , Post day 1, learning disability P - Discharge to home today pending normal bladder emptying. Routine post instructions. [facility] Written discharge instructions provided. returning for circumcision tomorrow. Discharge Plan Disposition Patient Disposition: Home Condition: Good Discharge Details Reason For Visit: R/O Labor Admit Date/Time: 10/21/24 05:59 Admit Provider: Didi Waller Attending Provider: Didi Waller Primary Care Provider: Unknown,Unknown Home Meds and New Rx's Prescriptions: No Action DHA 200 mg capsule 200 mg PO DAILY cholecalciferol (vitamin D3) 10 mcg (400 unit) capsule 10 mcg PO DAILY ferrous sulfate [Feosol] 325 mg (65 mg iron) tablet 325 mg PO DAILY Qty: 90 3RF Sambucus Elderberry 30-1.1-25 mg tablet,chewable 2 tab PO DAILY Discharge Instructions Stand Alone Forms: BC Instructions, BC Post Vaginal Deliver Activity:: Activity as Tolerated Equipment/Supplies:: No Equipment Needed Diet:: As Tolerated Discharge Orders Discharge Orders: Discharge Order (Routine); Ordered 10/23/24 Ordered By: Didi Waller OB:DS Summary Summary Vaginal Delivery Method: Spontaneaous Episiotomy Description: None Laceration Description: None Laceration Extension: N/A Contraception Discussed Contraception Discussed: Yes Contraceptive Plan: Undecided (reviewed all methods), Gender-Baby A: Male weight: 7 lb 10.577 oz Status at Discharge Functional status at discharge: independent ambulation Overall status at discharge: patient is back to baseline Mental Status: mental status grossly normal Speech and Movement: speech and movement normal Mood: congruent mood Affect: normal affect Exam Physical Exam Vital signs: Temp Pulse Resp BP Pulse Ox 97.7 F 78 16 120/80 97 10/23/24 10:45 10/23/24 10:45 10/23/24 10:45 10/23/24 10:45 10/23/24 10:45 Vital Signs Reviewed: Yes Constitutional Constitutional: no acute distress HEENT Exam HEENT Exam: Normal Respiratory Exam Respiratory Exam: Normal Cardiovascular Exam Cardiovascular Exam: Normal Fundal Exam Fundus: Firm Comment: at u. Encouraged to void. Bladder scn requested of Oleksandr CHEUNG Extremities Exam Extremity Exam: Normal Skin Exam Skin Exam: Normal Psychiatric Exam Psychiatric Exam: Normal PFSH All Active Problems (Updated 10/23/24 @ 14:55 by Diid Waller CNM) Term of male (Acute) Wears glasses (Chronic) Followed by [facility]- last visit 04/06/2020 Learning difficulty (Acute 11/07/16) with IEP Medical History (Updated 10/23/24 @ 14:55 by Didi Waller CNM) Dysmenorrhea Weight loss, unintentional Delayed menses Learning difficulty with IEP Family History Mother Healthy adult on routine physical examination Father Healthy adult on routine physical examination Other Essential hypertension PGF, MGM Heart disease PGF, MGM Hyperlipidemia PGF, MGM Neoplasm MGM-colon, PGF-lung Stroke PGF, MGM Social History Smoking/Tobacco Use Status: Never Second Hand Exposure: No Smoking risk assessment performed?: Yes Alcohol Intake: never Drug use: Never Household members: family Education Level: other Details: Working at the [employer] Pets and animals: Yes (1 cat 1 dog) Pets and animals: cat(s) and dog(s) Current gender identity: female What type of physical activity do you participate in: regular exercise and other Details: Playing Volleyball Seatbelt use: always Helmet use: Yes History History 1 Para 0 Hx # Term Pregnancies 0 Multiple births 0 Hx # Pregnancies 0 Ectopic pregnancies 0 AB induced 0 Hx Number of Living Children 0 AB spontaneous 0 DS: Data Vitals/I&O Vitals and I&O: Vital Signs Temperature 97.7 F 10/23/24 10:45 Temperature Source Oral 10/23/24 10:45 Pulse 78 10/23/24 10:45 Pulse Rhythm Regular 10/23/24 10:00 Respiratory Rate 16 10/23/24 10:45 Respiratory Depth Normal 10/21/24 03:16 Blood Pressure 120/80 10/23/24 10:45 Blood Pressure Mean 93 10/23/24 10:45 Pulse Oximetry 97 10/23/24 10:45 Oxygen Delivery Method Room Air 10/21/24 03:16 Oxygen Flow Rate 0 10/21/24 03:16 Pain Level 4 10/23/24 10:45 Intake & Output 10/22/24 10/23/24 10/23/24 23:59 11:59 23:59 Output Total 1800 / 2800 Balance -1800 / -2476.5 Output: Urine 1800 / 2800 Other: Urine Color Pale Urine Appearance Clear Urine Odor None
--- NOTE | 2024-10-24 08:38 | PDOC.CMPRO ---
Date of service: 10/24/24 Time of Service: 08:38 Care Management Progress Note Progress Note Text Progress Note Text: This designer/writer had a call from OB, pt needed to obtain insurance for her baby. Referral to [facility] was sent; [facility] will be reaching out to mom, in the community. Social Determinants of Health Screening Will the Patient Participate in the Screening?: Unable to obtain
== END 2024-10-23 19:32 | disposition home or self-care (01) | DRG 807 ==
PROVIDERS: Admitting Provider Advanced Practice Midwife; Visit Provider Advanced Practice Midwife
DX: O99.02 Anemia complicating childbirth (principal); Z37.0 Single live birth; D64.9 Anemia, unspecified; Z3A.39 39 weeks gestation of pregnancy; R63.6 Underweight; O75.89 Other specified complications of labor and delivery
CPT/HCPCS: 36415; 80053; 85027; 86850; 86900; 86901; 84550; G0378; J2210; J2270; J2590